=== PATIENT | female | born 1970 | race Two or more races ===

== ENCOUNTER 2017-08-18 14:33 | Outpatient (CLI) | payer OTHER ==
[~2017-08-18 14:33] MED LIST: DICLOFENAC SODI50 MG PO
== END 2017-08-18 14:47 | disposition home or self-care (01) ==
LOC: SONOGRAMA 14:33
DX: N84.0 Polyp of corpus uteri (principal)

== ENCOUNTER 2018-05-20 09:30 | Outpatient (CLI) | payer OTHER | END 2018-05-20 09:37 | disposition home or self-care (01) | LOC: RX STUDY 09:30 | DX: R13.14 Dysphagia, pharyngoesophageal phase (principal); K21.9 Gastro-esophageal reflux disease without esophagitis ==

== ENCOUNTER 2018-07-04 03:26 | Emergency (ER) | payer OTHER ==
[~2018-07-04] VITALS: Ht 162.6 cm; Wt 88.5 kg
[2018-07-04] MEDS ORDERED: ZANTAC300 MG (03:41)
[2018-07-04] MEDS ORDERED: PROTONIX40 M1 (03:41)
== END 2018-07-04 12:30 | disposition home or self-care (01) ==
LOC: ER 03:26
DX: N20.0 Calculus of kidney (principal); R10.84 Generalized abdominal pain

== ENCOUNTER 2023-03-30 01:57 | Emergency (ER) | payer OTHER ==
[~2023-03-30] VITALS: Ht 162.6 cm; Wt 86.2 kg
[~2023-03-30 01:57] MED LIST changes: +PROTONIX40 M1; +ZANTAC300 MG
[2023-03-30] MEDS ORDERED: LEVO-T25 MCG PO (02:18)
[2023-03-30] MEDS ORDERED: DICLOFENAC SODI75 MG PO (05:00)
== END 2023-03-30 05:08 | disposition home or self-care (01) ==
LOC: ER 01:57
DX: M94.0 Chondrocostal junction syndrome [Tietze] (principal)